=== PATIENT | female | born 1970 ===

== ENCOUNTER 2017-08-05 01:38 | Emergency (ER) | payer OTHER ==
[2017-08-05 01:50] VITALS: BP 113/77; PULSE 96; RESP 18; TEMP 98.3; O2SAT 100
[2017-08-05] MEDS ORDERED: Sodium Chloride 0.9% 1,000 ML IV STA (02:29)
[2017-08-05] MEDS ORDERED: Famotidine 20mg/50ml Premix IVPB STA (02:29)
[2017-08-05] MEDS ORDERED: Famotidine 20mg/50ml 20 MG/50 ML BAG IVPB ONE (02:39)
[2017-08-05 03:03] LABS: BASO # 0.1 K/uL (0.0-0.2); BASO % 0.9 % (0.0-2.0); EOS # 0.2 K/uL (0.0-0.7); HEMOGLOBIN 10.8 g/dL (12.0-16.0); LYMPH # 2.5 K/uL (1.0-4.3); LYMPH % 21.4 % (20.0-40.0); MEAN CELL VOLUME 84.9 fl (81.0-99.0); MEAN CORPUSCULAR HGB CONC 34.2 g/dL (33.0-37.0); MEAN PLATELET VOLUME 7.6 fl (7.2-11.7); MONO # 0.9 K/uL (0.0-0.8); MONO % 7.6 % (0.0-10.0); NEUT # 7.9 K/uL (1.8-7.0); NEUT % 68.1 % (50.0-75.0); NRBC % 0.2 % (0.0-0.0); RBC 3.72 Mil/uL (3.80-5.20); RED CELL DISTRIBUTION WIDTH 15.7 % (11.5-14.5); WHITE BLOOD COUNT 11.7 K/uL (4.8-10.8)
[2017-08-05 03:05] LABS: SQUAMOUS EPITHIAL < 1 /hpf (0-5); URINE BILIRUBIN NEGATIVE (NEGATIVE); URINE BLOOD SMALL (NEGATIVE); URINE CLARITY CLEAR (Clear); URINE COLOR YELLOW (YELLOW); URINE GLUCOSE (UA) NEG (Normal); URINE LEUKOCYTE ESTERASE NEG Leu/uL (Negative); URINE PROTEIN NEGATIVE (NEGATIVE); URINE UROBILINOGEN 0.2-1.0 mg/dL (0.2-1.0)
[2017-08-05 03:08] LABS: ALBUMIN 3.2 g/dL (3.5-5.0); ALT/SGPT 19 U/L (9-52); AST/SGOT 25 U/L (14-36); BLOOD UREA NITROGEN 13 mg/dl (7-17); CALCIUM 8.4 mg/dL (8.4-10.2); GFR AFRICAN-AMERICAN > 60; GFR NON-AFRICAN AMERICAN > 60; LIPASE 159 U/L (23-300)
[2017-08-05] MEDS ORDERED: Iohexol 300 100 ML IJ ONE (03:39)
[2017-08-05] MEDS ORDERED: Sodium Chloride 0.9% 50 ML IV ONE (03:39)
--- NOTE | 2017-08-05 03:51 | ED PDOC ---
HPI: Abdomen Time Seen by Provider: 08/05/17 01:56 Chief Complaint (Nursing): Abdominal Pain Chief Complaint (Provider): Abdominal Pain History Per: Patient History/Exam Limitations: no limitations Onset/Duration Of Symptoms: Hrs Current Symptoms Are (Timing): Still Present Location Of Pain/Discomfort: Periumbilical Associated Symptoms: Nausea, Vomiting, Back Pain. denies: Diarrhea, Urinary Symptoms Additional Complaint(s): Anna Marie Root is a 46 year old female with no past medical history who is presenting to the ED with complaints of abdominal pain onset around 12 am this morning. Patient states that she woke up with constant moderate pain to the periumbilical area that radiates to the right flank and mid back. She reports that this pain is associated with nausea and vomiting. She says that she tried to go to the bathroom twice and it was not diarrhea and it did not relieve any of her symptoms. Patient reports no past medical history of kidney or gall stones. She states she has a normal appetite and denies any fever or urinary symptoms and reports she finished her period one day ago. PMD: none provided Past Medical History Reviewed: Historical Data, Nursing Documentation, Vital Signs Vital Signs: Last Vital Signs Temp 98.3 F 08/05/17 01:46 Pulse 96 H 08/05/17 01:46 Resp 18 08/05/17 01:46 BP 113/77 08/05/17 01:46 Pulse Ox 100 08/05/17 05:50 - Medical History PMH: No Chronic Diseases - Surgical History Surgical History: No Surg Hx - Family History Family History: States: Unknown Family Hx - Social History Current smoker - smoking cessation education provided: No Alcohol: None Drugs: Denies - Home Medications Home Medications: Ambulatory Orders Medication Instructions Recorded Naproxen 500 mg PO BID #30 tab 08/05/17 Tamsulosin [Flomax] 0.4 mg PO DAILY #10 cap 08/05/17 oxyCODONE/Acetaminophen [Percocet 1 ea PO TID PRN #12 tab 08/05/17 5/325 mg Tab] - Allergies Allergies/Adverse Reactions: Allergies Allergy/AdvReac Type Severity Reaction Status Date / Time No Known Allergies Allergy Verified 08/05/17 01:46 Review of Systems ROS Statement: Except As Marked, All Systems Reviewed And Found Negative Constitutional: Negative for: Fever Gastrointestinal: Positive for: Nausea, Vomiting, Abdominal Pain. Negative for : Diarrhea Musculoskeletal: Positive for: Back Pain. Negative for: Other (urinary symptoms ) Physical Exam - Reviewed Nursing Documentation Reviewed: Yes Vital Signs Reviewed: Yes - Physical Exam Comments: GENERAL APPEARANCE: Patient is awake, alert, oriented x 3, in mild painful distress. SKIN: Warm, dry; (-) cyanosis. EYES: (-) conjunctival pallor, (-) scleral icterus. ENMT: Mucous membranes moist. NECK: (-) tenderness, (-) stiffness, (-) lymphadenopathy. CHEST AND RESPIRATORY: (-) rales, (-) rhonchi, (-) wheezes; breath sounds equal bilaterally. HEART AND CARDIOVASCULAR: (-) irregularity; (-) murmur, (-) gallop. ABDOMEN AND GI: (-) distention. Bowel sounds active; (+) tenderness in periumbilical region, (+) guarding, (-) rebound, (-) palpable masses, (-) CVA tenderness. (-) Mcburney's Point tenderness. (-) Caballero's Sign EXTREMITIES: (-) deformity, (-) edema, (+) distal pulses. NEURO AND PSYCH: Mental status as above; (-) focal findings. - Laboratory Results Result Diagrams: 08/05/17 02:40 08/05/17 02:40 - ECG O2 Sat by Pulse Oximetry: 100 (RA) Pulse Ox Interpretation: Normal Medical Decision Making Medical Decision Making: Impression : r/o renal stone, biliary colic, dyspepsia Time: 2:33 Plan: --CT Abd/Pelvis --CMP--Lipase --ED Urine --CBC --IV Fluids --Pepcid 20 mg IVPB --Toradol 30 mg IVP --Urine Culture --Urinalysis Labs reviewed. 0520 On re-evaluation, patient reports improvement of symptoms, denies any abdominal pain or nausea at this time. On exam, patient was sleeping but aroused easily, she is now AAOx3, in no acute distress. Abdomen soft, non-tender, no guarding, no rebound. Lab results reviewed and d/w the patient. CT results still pending. 0545 CT A/P w/ IV contrast : FINDINGS: Lung bases: There is bibasilar atelectasis. ABDOMEN: Liver: There are hepatic hypodensities too small to characterize. Enlarged fatty liver. Gallbladder and bile ducts: Unremarkable. No ductal dilation. Pancreas: Unremarkable. No mass. No ductal dilation. Spleen: Unremarkable. No splenomegaly. Adrenals: Unremarkable. No mass. Kidneys and ureters: Moderate right hydroureteronephrosis with a 2-3 mm right UVJ/bladder stone seen on image 143 series 3. Nonobstructive renal stones. Stomach and bowel: Diverticulosis. There is stool like appearance to the distal small bowel. This may represent slow transit. Moderate amount of stool in the colon. No obstruction. No mucosal thickening. PELVIS: Appendix: Normal appendix. Bladder: Partially distended bladder with bladder wall thickening. Correlation with urinalysis is recommended only if clinical cystitis is suspected. Reproductive: Uterus is seen. ABDOMEN and PELVIS: Intraperitoneal space: Unremarkable. No free air. No significant fluid collection. Bones/joints: No acute fracture. No dislocation. Soft tissues: There is a fat-containing umbilical hernia. Vasculature: Pelvic phleboliths. No abdominal aortic aneurysm. Lymph nodes: Unremarkable. No enlarged lymph nodes. IMPRESSION: Moderate right hydroureteronephrosis with a 2-3 mm right UVJ/bladder stone seen on image 143 series 3. Dictated and Authenticated by: Moshe Street MD 08/05/2017 5:39 AM Eastern Time ([place] & [place]) Diagnostic results d/w the patient in great detail. Diagnosis of renal stone with hydroureteroneprhosis d/w the patient. Based on history, exam and diagnostic results, plan will be for outpatient follow up. Patient instructed to follow-up with referral provided - urologist in 1-2 days without fail. Advised to take medication as prescribed. Drink plenty of fluids, strain her urine. Return to the emergency room at any time for any new or worsening symptoms. Patient states she fully agrees with and understands discharge instructions. States that she agrees with the plan and disposition. Verbalized and repeated discharge instructions and plan. I have given the patient opportunity to ask any additional questions. Scribe Attestation: Documented by, My Woody acting as a scribe for Zehra Lund PA-C. Provider Scribe Attestation: All medical record entries made by the Scribe were at my direction and personally dictated by me. I have reviewed the chart and agree that the record accurately reflects my personal performance of the history, physical exam, medical decision making, and the department course for this patient. I have also personally directed, reviewed, and agree with the discharge instructions and disposition. Disposition - Clinical Impression Clinical Impression: Abdominal pain, Renal colic, Hydroureteronephrosis - Patient ED Disposition Is Patient to be Admitted: No Counseled Patient/Family Regarding: Studies Performed, Diagnosis, Need For Followup, Rx Given - Disposition Referrals: Mehdi Salcido MD [Medical Doctor] - Disposition: Routine/Home Disposition Time: 05:45 Condition: IMPROVED Additional Instructions: Thank you for letting us take care of you today. You were treated for abdominal pain, dyspepsia. The emergency medical care you received today was directed at your acute symptoms. If you were prescribed any medication, please fill it and take as directed. It may take several days for your symptoms to resolve. Return to the Emergency Department if your symptoms worsen, do not improve, or if you have any other problems. Please contact your doctor in 2 days for re-evaluation and follow up / or call one of the physicians/clinics you have been referred to that are listed on the Patient Visit Information form that is included in your discharge packet. Bring any paperwork you were given at discharge with you along with any medications you are taking to your follow up visit. Our treatment cannot replace ongoing medical care by a primary care provider (PCP) outside of the emergency department. Thank you for allowing the [facility] team to be part of your care today. Prescriptions: Naproxen 500 mg PO BID #30 tab oxyCODONE/Acetaminophen [Percocet 5/325 mg Tab] 1 ea PO TID PRN #12 tab PRN Reason: Pain, Severe (8-10) Tamsulosin [Flomax] 0.4 mg PO DAILY #10 cap Instructions: Hydronephrosis in Adults, Renal Colic, Acute Abdomen (Belly Pain) Forms: [facility] (Yoruba), [facility] ED School/Work Excuse Print Language: MALAGASY
--- NOTE | 2017-08-05 16:20 | CT ---
PROCEDURE: CT Abdomen and Pelvis with contrast HISTORY: periumbilical pain COMPARISON: None. TECHNIQUE: Following the intravenous administration of iodinated contrast material, a CT examination of the abdomen and pelvis performed from the domes of the diaphragms to the symphysis pubis with reformatted datasets provided not only axial but also sagittal and coronal planes. Oral contrast was not administered as per referring physician request. Contrast dose: Omnipaque 300, 95 cc Radiation dose: Total exam DLP = 245.52 mGy-cm. This CT exam was performed using one or more of the following dose reduction techniques: Automated exposure control, adjustment of the mA and/or kV according to patient size, and/or use of iterative reconstruction technique. FINDINGS: LOWER THORAX: Unremarkable. LIVER: Two tiny lucencies seen the left lobe liver too small to characterize. No suspicious right lobe liver findings nevertheless. A Obed's lobe is seen extending below lower pole right kidney level off the right lobe liver. GALLBLADDER AND BILE DUCTS: Unremarkable. PANCREAS: Unremarkable. No gross lesion or ductal dilatation. SPLEEN: Unremarkable. ADRENALS: Unremarkable. No mass. KIDNEYS AND URETERS: Left kidney appears unremarkable. The right kidney however is mild residual hydro nephrosis and there is also mild hydroureter due to a 2.5 mm calculus identified either at the right uterovesical junction or the urinary bladder base right side. 3-4 a left 945 right punctate intrarenal calculi identified at the bilateral kidneys. VASCULATURE: Unremarkable. No aortic aneurysm. BOWEL: Mild to moderate AP material seen throughout the large bowel. . No obstruction. No gross mural thickening. APPENDIX: Normal appendix. PERITONEUM: Unremarkable. No free fluid. No free air. LYMPH NODES: Unremarkable. No enlarged lymph nodes. BLADDER: Unremarkable. REPRODUCTIVE: Unremarkable. BONES: No acute fracture. OTHER FINDINGS: None. IMPRESSION: Residual limited right hydroureteronephrosis is appreciated due to a 2.5 mm calculus at the right the right uterus with junction or within the right urinary bladder at the bases. Concordant preliminary report from [facility], 08/05/2017.
== END 2017-08-05 06:09 | disposition home or self-care (01) ==
LOC: EDBD → H.ER 01:38
DX: R10.9 Unspecified abdominal pain (principal); N23 Unspecified renal colic; N13.2 Hydronephrosis with renal and ureteral calculous obstruction
CPT/HCPCS: 74177; 80053; 81003; 81025; 83690; 85025; 87086; 96374; 99283; J1885; J7030; Q9967

== ENCOUNTER 2017-08-08 17:37 | Emergency (ER) | payer OTHER ==
[2017-08-08 17:44] VITALS: RESP 18; TEMP 98.1
[2017-08-08] MEDS ORDERED: Sodium Chloride 0.9% 1,000 ML IV STA (18:07)
--- NOTE | 2017-08-08 18:17 | ED PDOC ---
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 Was seen monday in ED for Abd pain, since resolved, but given antibiotic which she states may be causing the symptoms, last dose taken yesterday at 11am Denies current fever, abdominal pain, bloody stools or melena, hematemesis, weakness, change vision or headache. Past Medical History Reviewed: Historical Data, Nursing Documentation, Vital Signs Vital Signs: Last Vital Signs Temp 98.1 F 08/08/17 17:42 Pulse 81 08/08/17 21:32 Resp 18 08/08/17 21:32 BP 128/63 08/08/17 21:32 Pulse Ox 99 08/09/17 13:36 - Medical History Other PMH: rheumatoid arthritis on methotrexate and folic acid - Surgical History Surgical History: No Surg Hx - Family History Family History: States: Unknown Family Hx - Living Arrangements Living Arrangements: With Family - Social History Current smoker - smoking cessation education provided: No - Home Medications Home Medications: Ambulatory Orders Medication Instructions Recorded Naproxen 500 mg PO BID #30 tab 08/05/17 Tamsulosin [Flomax] 0.4 mg PO DAILY #10 cap 08/05/17 oxyCODONE/Acetaminophen [Percocet 1 ea PO TID PRN #12 tab 08/05/17 5/325 mg Tab] Ondansetron ODT [Zofran ODT] 4 mg PO Q6 PRN #10 odt 08/08/17 - Allergies Allergies/Adverse Reactions: Allergies Allergy/AdvReac Type Severity Reaction Status Date / Time No Known Allergies Allergy Verified 08/08/17 17:42 Review of Systems ROS Statement: Except As Marked, All Systems Reviewed And Found Negative Constitutional: Negative for: Fever, Chills, Weight loss Eyes: Negative for: Vision Change ENT: Negative for: Nose Discharge, Throat Pain Cardiovascular: Positive for: Light Headedness. Negative for: Chest Pain Respiratory: Negative for: Cough Gastrointestinal: Positive for: Nausea, Vomiting, Diarrhea. Negative for: Abdominal Pain Genitourinary Female: Negative for: Dysuria, Hematuria Musculoskeletal: Negative for: Neck Pain Skin: Negative for: Rash, Jaundice Neurological: Negative for: Weakness, Numbness, Confusion Physical Exam - Reviewed Nursing Documentation Reviewed: Yes Vital Signs Reviewed: Yes - Physical Exam Appears: Positive for: Well, Non-toxic, No Acute Distress Head Exam: Positive for: ATRAUMATIC, NORMAL INSPECTION, NORMOCEPHALIC Skin: Positive for: Normal Color, Warm, DRY Eye Exam: Positive for: Normal appearance, EOMI, PERRL. Negative for: Scleral icterus ENT: Positive for: Normal ENT Inspection Neck: Positive for: Normal, Painless ROM Cardiovascular/Chest: Positive for: Regular Rate, Rhythm Respiratory: Positive for: CNT, Normal Breath Sounds Gastrointestinal/Abdominal: Positive for: Soft. Negative for: Tenderness, Guarding Back: Positive for: Normal Inspection Extremity: Positive for: Normal ROM Neurologic/Psych: Positive for: Alert, Oriented, Cerebellar Tests (intact grossly). Negative for: Motor/Sensory Deficits - Laboratory Results Result Diagrams: 08/08/17 19:00 08/08/17 19:00 - ECG O2 Sat by Pulse Oximetry: 99 Medical Decision Making Medical Decision Making: workup for dizziness and nausea initiated IVF, meclizine, reglan and basic labs Urine cx from last visit reviewed and negative prior chart reviewed on flomax for nephrolithiasis, states pain resolve, flomax possible contribution to dizziness, not an antibiotic as she stated, she stopped medication Disposition - Clinical Impression Clinical Impression: Dizziness - Patient ED Disposition Is Patient to be Admitted: No Counseled Patient/Family Regarding: Studies Performed, Diagnosis, Need For Followup, Rx Given - Disposition Referrals: [facility] [Outside] Disposition: Routine/Home Disposition Time: 19:05 Condition: STABLE Additional Instructions: Take medication for nausea as directed. Prescriptions: Ondansetron ODT [Zofran ODT] 4 mg PO Q6 PRN #10 odt PRN Reason: Nausea/Vomiting Instructions: Dizziness, Nonvertigo, (DC) Forms: [employer] (Romanian)
[2017-08-08 19:05] LABS: BASO % 0.2 % (0.0-2.0); EOS # 0.1 K/uL (0.0-0.7); EOS % 1.4 % (0.0-4.0); HEMOGLOBIN 11.4 g/dL (12.0-16.0); LYMPH # 3.1 K/uL (1.0-4.3); LYMPH % 33.4 % (20.0-40.0); MEAN CELL VOLUME 84.9 fl (81.0-99.0); MEAN CORPUSCULAR HEMOGLOBIN 28.3 pg (27.0-31.0); MEAN CORPUSCULAR HGB CONC 33.4 g/dL (33.0-37.0); MEAN PLATELET VOLUME 8.3 fl (7.2-11.7); MONO # 0.4 K/uL (0.0-0.8); MONO % 4.6 % (0.0-10.0); NEUT # 5.6 K/uL (1.8-7.0); NEUT % 60.4 % (50.0-75.0); RBC 4.02 Mil/uL (3.80-5.20); RED CELL DISTRIBUTION WIDTH 15.6 % (11.5-14.5); WHITE BLOOD COUNT 9.3 K/uL (4.8-10.8)
[2017-08-08 19:19] LABS: ALB/GLOB RATIO 1.1 (1.0-2.1); ALBUMIN 3.8 g/dL (3.5-5.0); ALT/SGPT 21 U/L (9-52); AST/SGOT 24 U/L (14-36); BLOOD UREA NITROGEN 10 mg/dl (7-17); CALCIUM 8.8 mg/dL (8.4-10.2); GFR AFRICAN-AMERICAN > 60; GFR NON-AFRICAN AMERICAN > 60
[2017-08-08 21:32] VITALS: BP 128/63; PULSE 81
--- NOTE | 2017-08-09 08:09 | CARD ---
APPROVED REPORT EKG Measurement Heart [id number] <Conclusion> Normal sinus rhythm Normal ECG
[2017-08-09 13:36] VITALS: O2SAT 99
== END 2017-08-08 21:32 | disposition home or self-care (01) ==
LOC: EDBD 17:37 → H.ER 17:37
DX: R42 Dizziness and giddiness (principal); R11.2 Nausea with vomiting, unspecified; M06.9 Rheumatoid arthritis, unspecified
CPT/HCPCS: 80053; 81025; 84484; 85025; 93005; 96361; 96374; 99285; J2765; J7030